=== PATIENT | female | born 1980 | race Hispanic/Latino ===

== ENCOUNTER 2019-07-03 23:09 | Emergency (ER) | payer SELFPAY ==
--- NOTE | 2019-07-04 01:40 | Emergency Department Report ---
Chief Complaint: Neck Pain/Injury Stated Complaint: NEED SCAN Time Seen by Provider: 07/04/19 00:55 - HPI History of Present Illness: Patient is a 39-year-old female who presents to the emergency room with complaints of a panic attack that occurred earlier in the day. She states that she was hyperventilating and felt like she was having difficulty breathing. She states that she counted down to ten and began to feel better. She has no symptoms at all currently. She denies any suicidal ideations, homicidal ideations, hallucinations. She states that she takes clonazepam and Lexapro and states she took them this morning. She states she has a past medical history of anemia. She states she has an allergy to penicillin. Patient is also stating that she needs x-rays of her neck and her lower back her chronic pain which she states that she has had for "multiple years." She reports that she has "bone spurs and degenerative disc disease" in her neck. She states that she has had chronic back pain for several years. She denies any acute fall or injury. She denies any numbness, weakness, bowel or bladder incontinence vitals are stable Patient is sleeping comfortably in exam room, no acute distress Heart sounds are normal, no murmur, gallops, rubs breath sounds are clear bilaterally without wheezing, rales, rhonchi, no stridor Normal oropharynx, no tonsillar exudate, no tonsillar hypertrophy pt is ambulatory without difficulty Patient is requesting pain medication, will treat pts discomfort with tylenol while in the ED Advised patient that we could not refill her clonazepam or Lexapro and those are medications that need to be managed by a psychiatrist or primary care physician Patient was pulled up in the [facility] system and patient received 60 tablets of clonazepam on 06/28/2019 Discussed with patient to follow up with her primary care physician and an orthopedic doctor due to her chronic pain advised patient to see a psychiatrist for her anxiety and management of her medication - Exam Vital Signs: Vital Signs 07/03/19 23:12 Temperature 98.4 F Pulse Rate 104 H Respiratory 18 Rate Blood Pressure 133/86 O2 Sat by Pulse 99 Oximetry MSE screening note: Focused history and physical exam performed. ED Disposition for MSE Clinical Impression: Anxiety, Chronic neck pain Chronic back pain Qualifiers: Back pain location: low back pain Back pain laterality: unspecified Sciatica presence: without sciatica Qualified Code(s): M54.5 - Low back pain Disposition: MED SCREENING EXAM-LEFT Is pt being admited?: No Does the pt Need Aspirin: No Condition: Stable Instructions: Chronic Back Pain (ED), Anxiety (ED) Additional Instructions: May take Tylenol or ibuprofen for discomfort. May use ice pack, heating pad, rest, epsom salt bath. please follow-up with a primary care doctor and an orthopedic doctor due to your chronic pain. Please follow-up with a psychiatrist due to your anxiety and for management of your medication. Return to the emergency room for any new or worsening symptoms. Please return to the emergency room or call 911 if begin feeling thoughts of wanting to hurt herself or others. Referrals: JAI FRAGA MD [Staff Physician] - 2-3 Days LING RYAN MD [Staff Physician] - 2-3 Days [facility] [Provider Group] - 2-3 Days [facility] [Outside] - 2-3 Days Time of Disposition: 01:40 Print Language: AMHARIC
[2019-07-04] MEDS ORDERED: ACETAMINOPHEN 325 MG TAB PO ONE (01:42)
[2019-07-04 04:28] VITALS: BP 128/83
== END 2019-07-04 01:00 | disposition left against medical advice (07) ==
LOC: ED 23:09
DX: M54.5 Low back pain (principal); M54.2 Cervicalgia; G89.29 Other chronic pain; F41.9 Anxiety disorder, unspecified

== ENCOUNTER 2019-07-04 06:26 | Emergency (ER) | payer MEDICAID ==
[2019-07-04 06:59] VITALS: BP 111/81
[2019-07-04 07:39] LABS: Basophils # (Auto) 0.1 K/mm3 (0.0-0.1); Eosinophils # (Auto) 0.4 K/mm3 (0.0-0.4); Hemoglobin 14.9 gm/dl (10.1-14.3); Lymphocytes # (Auto) 3.8 K/mm3 (1.2-5.4); Mean Corpuscular HGB Conc 34 % (30-34); Mean Corpuscular Volume 94 fl (79-97); Monocytes # (Auto) 0.8 K/mm3 (0.0-0.8); Monocytes % (Auto) 6.5 % (0.0-7.3); Platelet Count 282 K/mm3 (140-440); Red Blood Count 4.66 M/mm3 (3.65-5.03); Red Cell Distribution Width 13.6 % (13.2-15.2)
[2019-07-04 07:51] LABS: BUN/Creatinine Ratio 30; Blood Urea Nitrogen 15 mg/dL (7-17); Calcium 9.9 mg/dL (8.4-10.2); Hemolysis Index 13
--- NOTE | 2019-07-04 08:16 | Emergency Department Report ---
Chief Complaint: Psych Stated Complaint: MH/NECK/BACK Time Seen by Provider: 07/04/19 08:06 - HPI History of Present Illness: Patient is a 39-year-old female with past medical history of chronic back pain and anxiety who is here stating that she wants something for her chronic pain. Patient's was here last night. Complaint and was screened out for community resources. Patient states this morning that she is here because her doctor told to come in to the nearest hospital. Patient's has been gong approximate 7 hours and I question the validity of her statement that her doctor, Dr. Ramiro Keyes, told her this morning to come in. The patient has no additional complaints besides low back pain which she states is chronic. Patient has anxiety and is no longer taking Zyprexa however looking at the [facility] the patient has 60 clonazepam E tablets filled on 06/28/2009. Patient denies homicidal suicidal ideations. - ROS Review of Systems: All other systems are reviewed and are negative - Exam Vital Signs: Vital Signs 07/04/19 06:33 Temperature 97.3 F L Pulse Rate 87 Respiratory 18 Rate Blood Pressure 111/81 O2 Sat by Pulse 100 Oximetry Physical Exam: Patient is alert and oriented 3 in no acute distress she is moving all extremities with normal strength and coordination. MSE screening note: Focused history and physical exam performed. Due to findings the following was ordered: ED Medical Decision Making - Lab Data Result diagrams: 07/04/19 07:19 07/04/19 07:19 - Medical Decision Making Patient has no medical emergency at this time. I did instruct the patient and we do not treat chronic pain here in the emergency department. Patient given a referral to orthopedics. Patient has been screened out for community resources. ED Disposition for MSE Clinical Impression: Chronic back pain Disposition: Z-07 MED SCREENING EXAM-LEFT Is pt being admited?: No Does the pt Need Aspirin: No Condition: Stable Referrals: PRIMARY CAREMD [Primary Care Provider] - 3-5 Days LING RYAN MD [Staff Physician] - 3-5 Days
== END 2019-07-04 08:23 | disposition left against medical advice (07) ==
LOC: ED 06:26
DX: G89.29 Other chronic pain (principal); M54.9 Dorsalgia, unspecified
CPT/HCPCS: 36415; 80048; 80320; 84703; 85025; 99283; G0480

== ENCOUNTER 2019-07-04 09:09 | Emergency (ER) | payer MEDICAID ==
[2019-07-04 09:25] VITALS: BP 119/85
--- NOTE | 2019-07-04 09:54 | Emergency Department Report ---
ED Psych HPI - General Chief Complaint: Medical Clearance Stated Complaint: GENERAL ILLNESS Time Seen by Provider: 07/04/19 09:46 Source: patient Mode of arrival: Ambulatory - History of Present Illness Initial Comments: Patient is a 39-year-old female who is here for her third visit in 24 hours. First 2 visits the patient signed in for chronic pain. Patient was scr eened out to see treated resources please of these visits. Patient had recently been prescribed large amount of benzodiazepines. Patient's was given information that we do not treat chronic pain here in emergency department. After the patient's last discharged the patient called police and was accusing our nursing staff of breaking into her home stealing from her. Patient is not complaining of any homicidal suicidal ideations but is actively having delusions. - Related Data Home Medications Medication Instructions Recorded Confirmed Last Taken Escitalopram [Lexapro] 1 tab PO DAILY 07/04/19 07/04/19 Unknown Zyprexa mg PO DAILY 07/04/19 Unknown clonazePAM [Klonopin] 1 tab PO TID 07/04/19 07/04/19 Unknown Allergies Allergy/AdvReac Type Severity Reaction Status Date / Time Penicillins Allergy Hives Verified 07/03/19 23:29 ED Review of Systems ROS: Stated complaint: GENERAL ILLNESS Other details as noted in HPI Comment: All other systems reviewed and negative ED Past Medical Hx - Past Medical History Previous Medical History?: Yes Hx Psychiatric Treatment: Yes (Anxiety, Depression,) Hx Asthma: Yes Additional medical history: Anemia. Chronic Back Pain. Chronic Neck Pain - Surgical History Past Surgical History?: Yes Additional Surgical History: Hernia Repair - Social History Smoking Status: Current Every Day Smoker Substance Use Type: None - Medications Home Medications: Home Medications Medication Instructions Recorded Confirmed Last Taken Type Escitalopram [Lexapro] 1 tab PO DAILY 07/04/19 07/04/19 Unknown History Zyprexa mg PO DAILY 07/04/19 Unknown History clonazePAM [Klonopin] 1 tab PO TID 07/04/19 07/04/19 Unknown History ED Physical Exam - General Limitations: No Limitations General appearance: alert, in no apparent distress - Head Head exam: Present: atraumatic, normocephalic - Eye Eye exam: Present: normal appearance, PERRL, EOMI - ENT ENT exam: Present: mucous membranes moist - Neck Neck exam: Present: normal inspection - Respiratory Respiratory exam: Present: normal lung sounds bilaterally. Absent: respiratory distress, wheezes, rales, rhonchi - Cardiovascular Cardiovascular Exam: Present: regular rate, normal rhythm, normal heart sounds. Absent: systolic murmur, diastolic murmur, rubs, gallop - GI/Abdominal GI/Abdominal exam: Present: soft, normal bowel sounds. Absent: distended, tenderness - Extremities Exam Extremities exam: Present: normal inspection - Back Exam Back exam: Present: normal inspection - Neurological Exam Neurological exam: Present: alert, oriented X3 - Psychiatric Psychiatric exam: Present: normal affect, normal mood - Skin Skin exam: Present: warm, dry, intact, normal color. Absent: rash ED Course Vital Signs 07/04/19 09:23 Temperature 98 F Pulse Rate 104 H Respiratory 18 Rate Blood Pressure 119/85 O2 Sat by Pulse 100 Oximetry - Reevaluation(s) Reevaluation #1: 07/04/19 09:53 Patient placed on a psychiatric hold at this time. Laboratory studies laboratory been drawn and resulted within normal limits. UDS is been ordered. Patient will be seen by our mental health assessors. ED Medical Decision Making - Medical Decision Making She was seen by our mental health assessors. Patient was still complaining of chronic back pain. They also explained that we do not treat chronic back pain in emergency department. Patient's is denying homicidal suicidal ideations and is now stating that she does not remember making accusations that of the nurses had broken into her home. Patient's stable for discharge. Critical care attestation.: If time is entered above; I have spent that time in minutes in the direct care of this critically ill patient, excluding procedure time. ED Disposition Clinical Impression: Chronic back pain Qualifiers: Back pain location: low back pain Back pain laterality: unspecified Sciatica presence: without sciatica Qualified Code(s): M54.5 - Low back pain; G89.29 - Other chronic pain Disposition: DC-01 TO HOME OR SELFCARE Is pt being admited?: No Does the pt Need Aspirin: No Condition: Stable Referrals: PRIMARY CARE, [Primary Care Provider] - 3-5 Days Time of Disposition: 16:09
== END 2019-07-04 18:28 | disposition home or self-care (01) ==
LOC: ED 09:09
DX: M54.9 Dorsalgia, unspecified (principal); G89.29 Other chronic pain; F32.9 Major depressive disorder, single episode, unspecified; F41.9 Anxiety disorder, unspecified; D64.9 Anemia, unspecified; F17.200 Nicotine dependence, unspecified, uncomplicated; Z79.899 Other long term (current) drug therapy; Z88.0 Allergy status to penicillin
CPT/HCPCS: 36415; 80048; 80320; 84703; 85025; 99283; G0480